=== PATIENT | male | born 1970 ===

== ENCOUNTER 2017-12-21 14:20 | Observation (INO) | payer BC ==
[2017-12-21] MEDS ORDERED: Morphine 4 MG/ML VIAL ONE ×2 (15:03→18:13)
[2017-12-21] MEDS ORDERED: Iohexol 240 (50 ml) PO STA (15:03)
--- NOTE | 2017-12-21 15:05 | ED PDOC ---
HPI: Abdomen Time Seen by Provider: 12/21/17 14:39 Chief Complaint (Nursing): Abdominal Pain Chief Complaint (Provider): abdominal pain History Per: Patient History/Exam Limitations: no limitations Onset/Duration Of Symptoms: Days (x1) Current Symptoms Are (Timing): Still Present Quality Of Discomfort: "Pain" Associated Symptoms: denies: Fever, Chills, Nausea, Vomiting, Diarrhea, Urinary Symptoms Last Bowel Movement: Yesterday Additional Complaint(s): Hernandez Godinez is a 47 year old male, with a past medical history of obstructive bowel, gastritis and peritonitis, who presents to the emergency department complaining of abdominal pain onset since last night. Patient's last bowel movement was last night and states it was normal. He did not take any medication for pain. He denies any fever, chills, nausea, vomit, diarrhea or urinary symptoms. No further medical complaints. PMD: Huan Mulligan Past Medical History Reviewed: Historical Data, Nursing Documentation, Vital Signs Vital Signs: Last Vital Signs Temp 98.3 F 12/21/17 14:24 Pulse 72 12/21/17 14:24 Resp 16 12/21/17 14:24 BP 121/77 12/21/17 14:24 Pulse Ox 100 12/21/17 15:16 - Medical History PMH: Gastritis, HTN, Hypercholesterolemia, Obstructive Bowel (SBO 2015) Denies: HIV, Chronic Kidney Disease Other PMH: peritonitis - Surgical History Surgical History: Appendectomy (10 yrs ago) - Family History Family History: States: No Known Family Hx - Social History Current smoker - smoking cessation education provided: No Alcohol: None Drugs: Denies - Home Medications Home Medications: Ambulatory Orders Medication Instructions Recorded Aspirin [Ecotrin] 81 mg PO DAILY 12/10/15 Atorvastatin [Lipitor] 40 mg PO DAILY 12/10/15 - Allergies Allergies/Adverse Reactions: Allergies Allergy/AdvReac Type Severity Reaction Status Date / Time No Known Allergies Allergy Verified 12/21/17 14:24 Review of Systems ROS Statement: Except As Marked, All Systems Reviewed And Found Negative Constitutional: Negative for: Fever, Chills Gastrointestinal: Positive for: Abdominal Pain. Negative for: Nausea, Vomiting , Diarrhea Genitourinary Male: Negative for: Dysuria Physical Exam - Reviewed Nursing Documentation Reviewed: Yes Vital Signs Reviewed: Yes - Physical Exam Appears: Positive for: Non-toxic, Uncomfortable Head Exam: Positive for: ATRAUMATIC, NORMOCEPHALIC Skin: Positive for: Normal Color, Warm, Dry Eye Exam: Positive for: Normal appearance Neck: Positive for: Painless ROM Cardiovascular/Chest: Positive for: Regular Rate, Rhythm. Negative for: Murmur Respiratory: Positive for: Normal Breath Sounds. Negative for: Respiratory Distress Gastrointestinal/Abdominal: Positive for: Tenderness (b/l upper and epigastric) , Distended Extremity: Positive for: Normal ROM (upper and lower extremities). Negative for : Deformity, Swelling Neurologic/Psych: Positive for: Alert, Oriented. Negative for: Motor/Sensory Deficits - Laboratory Results Result Diagrams: 12/21/17 15:13 12/21/17 15:13 - ECG O2 Sat by Pulse Oximetry: 100 (RA) Pulse Ox Interpretation: Normal Medical Decision Making Medical Decision Making: Initial Impression: abdominal pain Initial Plan: --Abd Pelvis PO & IV contrast [CT] --EKG --CMP --Lipase --Urine dipstick --CBC w/ differential --PTT --PT --Omnipaque 240 50 ml PO --Morphine 4 mg IV --Urinalysis --Reevaluation 16:50 -Discussed case with Dr. Arevalo after CT, called surgical supply assistant under Dr. Arevalo. Scribe Attestation: Documented by Torres Banks, acting as a scribe for Samara Ponce MD Provider Scribe Attestation: All medical record entries made by the Scribe were at my direction and personally dictated by me. I have reviewed the chart and agree that the record accurately reflects my personal performance of the history, physical exam, medical decision making, and the department course for this patient. I have also personally directed, reviewed, and agree with the discharge instructions and disposition. Disposition - Disposition Forms: [employer] (Arabic)
[2017-12-21] MEDS ORDERED: Iohexol 240 (50 ml) ONE (15:13)
[2017-12-21 15:25] LABS: INR 1.1 (0.9-1.2); PARTIAL THROMBOPLASTIN TIME 26.6 Seconds (25.6-37.1); PROTHROMBIN TIME 12.1 Seconds (9.8-13.1)
[2017-12-21 15:28] LABS: BASO # 0.1 K/uL (0.0-0.2); BASO % 0.5 % (0.0-2.0); EOS # 0.1 K/uL (0.0-0.7); EOS % 0.6 % (0.0-4.0); HEMOGLOBIN 15.8 g/dL (12.0-18.0); LYMPH # 3.4 K/uL (1.0-4.3); LYMPH % 29.6 % (20.0-40.0); MEAN CELL VOLUME 90.8 fl (80.0-94.0); MEAN CORPUSCULAR HGB CONC 34.2 g/dL (33.0-37.0); MEAN PLATELET VOLUME 7.7 fl (7.2-11.7); MONO # 0.8 K/uL (0.0-0.8); MONO % 6.8 % (0.0-10.0); NEUT # 7.2 K/uL (1.8-7.0); NEUT % 62.5 % (50.0-75.0); RBC 5.08 Mil/uL (4.40-5.90); RED CELL DISTRIBUTION WIDTH 13.2 % (11.5-14.5); WHITE BLOOD COUNT 11.5 K/uL (4.8-10.8)
[2017-12-21 15:43] LABS: ALB/GLOB RATIO 1.3 (1.0-2.1); ALBUMIN 4.7 g/dL (3.5-5.0); ALT/SGPT 54 U/L (21-72); AST/SGOT 36 U/L (17-59); BLOOD UREA NITROGEN 17 mg/dl (9-20); CALCIUM 9.6 mg/dL (8.4-10.2); GFR AFRICAN-AMERICAN > 60; GFR NON-AFRICAN AMERICAN > 60; LIPASE 77 U/L (23-300)
[2017-12-21 16:40] LABS: SQUAMOUS EPITHIAL < 1 /hpf (0-5); URINE BACTERIA RARE (<OCC); URINE BILIRUBIN NEGATIVE (NEGATIVE); URINE BLOOD NEGATIVE (NEGATIVE); URINE CLARITY CLEAR (Clear); URINE COLOR YELLOW (YELLOW); URINE GLUCOSE (UA) NEG (Normal); URINE LEUKOCYTE ESTERASE NEG Leu/uL (Negative); URINE PROTEIN NEGATIVE (NEGATIVE); URINE UROBILINOGEN 0.2-1.0 mg/dL (0.2-1.0)
[2017-12-21] MEDS ORDERED: Sodium Chloride 0.9% 100 ML ONE (16:57)
[2017-12-21] MEDS ORDERED: Iohexol 300 100 ML IJ ONE (16:57)
--- NOTE | 2017-12-21 17:57 | CT ---
PROCEDURE: CT Abdomen and Pelvis with contrast HISTORY: Upper abd pain COMPARISON: 08/31/2016 TECHNIQUE: Contrast dose: 95 mL Omnipaque 300 Radiation dose: Total exam DLP = 1009.34 mGy-cm. This CT exam was performed using one or more of the following dose reduction techniques: Automated exposure control, adjustment of the mA and/or kV according to patient size, and/or use of iterative reconstruction technique. FINDINGS: LOWER THORAX: Unremarkable. LIVER: Normal size, contour and attenuation. Irregularly-shaped low-attenuation lesion in the medial segment of the left hepatic lobe unchanged from prior examination. This measures approximately 1.5 x 3.0 cm. Nonspecific. No other mass. No biliary dilatation. Smooth contour. GALLBLADDER AND BILE DUCTS: Unremarkable. PANCREAS: Unremarkable. No gross lesion or ductal dilatation. SPLEEN: Normal size and contour. Stable 2.6 cm lesion with thick enhancing rim and central low attenuation. ADRENALS: Unremarkable. No mass. KIDNEYS AND URETERS: Unremarkable. No hydronephrosis. No solid mass. VASCULATURE: Unremarkable. No aortic aneurysm. BOWEL: Mechanical small-bowel obstruction. Definite point of transition is not identified. There is fecalization of content in the small bowel indicating likely mechanical obstruction. APPENDIX: Not identified. PERITONEUM: Unremarkable. No free fluid. No free air. LYMPH NODES: Unremarkable. No enlarged lymph nodes. BLADDER: Poorly distended. No gross abnormality. REPRODUCTIVE: Unremarkable prostate. BONES: No acute fracture. Posterior fixation L4-5. OTHER FINDINGS: None. IMPRESSION: Mechanical small-bowel obstruction. Definite point of transition not identified. No etiology is evident. Stable enhancing splenic lesion. Stable nonspecific low-attenuation hepatic lesion.
--- NOTE | 2017-12-21 18:07 | ED PDOC ---
- Laboratory Results Result Diagrams: 12/21/17 15:13 12/21/17 15:13 Interpretation Of Abn Labs: 11.5 wbc - ECG O2 Sat by Pulse Oximetry: 100 (RA) Pulse Ox Interpretation: Normal - Progress ED Course And Treament: 1500: Pt. with abd pain. Took over care from Dr. Ponce. Fu on imaging. Hx of sbo. 180: Stable. AAOx3. Spoke with Dr. Mulligan. Will admit. Pt. saw Dr. Sadler last time he had SBO. 1831: Spoke with manager surgical. They will see pt. and speak with Dr. Sadler. Disposition - Clinical Impression Clinical Impression: Intestinal obstruction - POA Present On Arrival: None - Disposition Disposition: Admitted as In-Patient Disposition Time: 18:10 Condition: FAIR
[2017-12-21] MEDS ORDERED: Morphine 4 MG/ML VIAL IV ONE (18:12)
--- NOTE | 2017-12-21 19:38 | CP.PCM.CON ---
<Bautista Knox - Last Filed: 12/21/17 19:38> History of Present Illness - History of Present Illness History of Present Illness: Surgery Mr. Godinez is a 46M with PSH of open appendectomy for perforated appendicitis over 10 years ago. He presents with abdominal pain started yesterday. Pt reports he ate japanese food last night and started to have pain around the epigastric area. Pain got worse and became more diffuse. PT states he felt sharp cramping in his abdomen and began to feel distended. He denies any nausea or vomiting at any time. His last BM was this morning. Non bloody non diarrhea. Currently, pt reports he feels much better with morphine. No further bowel movements or flatus however. Denies dysuria, hematochezia, hematemesis, hematuria, recent travel, sick contact, dizziness, SOB, CP. Pt had similar symptoms in the past. Seen by surgical team. Treated conservatively. Pt was seen by GI at that time and had colonoscopy and endoscopy since then. Per pt they were normal. PMH: acid reflux PSH: Open appendectomy, spinal sx, colonoscopy, endoscopy Review of Systems - Review of Systems Review of Systems: See HPI Past Patient History - Past Medical History & Family History Past Medical History?: Yes - Past Social History Alcohol: None Drugs: Denies - CARDIAC Hx Hypercholesterolemia: Yes Hx Hypertension: Yes - PULMONARY Hx Respiratory Disorders: No - NEUROLOGICAL Hx Neurological Disorder: No - HEENT Hx HEENT Problems: No - RENAL Hx Chronic Kidney Disease: No - ENDOCRINE/METABOLIC Hx Diabetes Mellitus Type 2: Yes - HEMATOLOGICAL/ONCOLOGICAL Hx Human Immunodeficiency Virus (HIV): No - INTEGUMENTARY Hx Dermatological Problems: No - MUSCULOSKELETAL/RHEUMATOLOGICAL Hx Musculoskeletal Disorders: No Hx Falls: No - GASTROINTESTINAL Hx Gastritis: Yes - GENITOURINARY/GYNECOLOGICAL Hx Genitourinary Disorders: No - PSYCHIATRIC Hx Psychophysiologic Disorder: No Hx Substance Use: No - SURGICAL HISTORY Hx Appendectomy: Yes (10 yrs ago) - ANESTHESIA Hx Anesthesia: Yes Hx Anesthesia Reactions: No Meds Allergies/Adverse Reactions: Allergies Allergy/AdvReac Type Severity Reaction Status Date / Time No Known Allergies Allergy Verified 12/21/17 14:24 - Medications Medications: Current Medications Acetaminophen (Tylenol 325mg Tab) 650 mg PO Q4 PRN PRN Reason: Fever >100.4 F Hydromorphone HCl (Dilaudid) 0.5 mg IVP Q4 PRN PRN Reason: Pain, severe (8-10) Sodium Chloride (Sodium Chloride 0.9%) 1,000 mls @ 150 mls/hr IV .Q6H40M [facility] Stop: 12/22/17 19:34 Ondansetron HCl (Zofran Inj) 4 mg IVP Q4 PRN PRN Reason: Nausea/Vomiting Physical Exam - Constitutional Appears: No Acute Distress - Head Exam Head Exam: ATRAUMATIC, NORMAL INSPECTION, NORMOCEPHALIC - Eye Exam Eye Exam: EOMI, Normal appearance, PERRL Pupil Exam: NORMAL ACCOMODATION, PERRL - ENT Exam ENT Exam: Mucous Membranes Moist, Normal Exam - Neck Exam Neck exam: Positive for: Normal Inspection - Respiratory Exam Respiratory Exam: Clear to Auscultation Bilateral, NORMAL BREATHING PATTERN - Cardiovascular Exam Cardiovascular Exam: REGULAR RHYTHM - GI/Abdominal Exam GI & Abdominal Exam: Distended, Normal Bowel Sounds, Soft, Tenderness. absent: Firm, Guarding, Hernia, Hypoactive Bowel Sounds, Mass, Organomegaly, Pulsatile Mass, Rebound, Rigid Additional comments: DIffusely tender to palpation. Well healed abd scar. - Rectal Exam Rectal Exam: NORMAL INSPECTION - Exam Exam: NORMAL INSPECTION - Back Exam Back exam: NORMAL INSPECTION - Neurological Exam Neurological exam: Alert, CN II-XII Intact, Normal Gait, Oriented x3, Reflexes Normal - Psychiatric Exam Psychiatric exam: Normal Affect, Normal Mood - Skin Skin Exam: Dry, Intact, Normal Color, Warm Results - Vital Signs Recent Vital Signs: Last Vital Signs Temp 98.3 F 12/21/17 19:01 Pulse 84 12/21/17 19:01 Resp 18 12/21/17 19:01 BP 119/87 12/21/17 19:01 Pulse Ox 97 12/21/17 19:01 - Labs Result Diagrams: 12/21/17 15:13 12/21/17 15:13 Labs: Laboratory Results - last 24 hr 12/21/17 12/21/17 12/21/17 15:13 15:13 15:13 WBC 11.5 H D RBC 5.08 Hgb 15.8 Hct 46.1 MCV 90.8 MCH 31.0 MCHC 34.2 RDW 13.2 Plt Count 283 MPV 7.7 Neut % (Auto) 62.5 Lymph % (Auto) 29.6 [place] % (Auto) 6.8 Eos % (Auto) 0.6 Baso % (Auto) 0.5 Neut # (Auto) 7.2 H Lymph # (Auto) 3.4 [place] # (Auto) 0.8 Eos # (Auto) 0.1 Baso # (Auto) 0.1 PT 12.1 INR 1.1 APTT 26.6 Sodium 143 Potassium 3.8 Chloride 101 Carbon Dioxide 25 Anion Gap 21 H BUN 17 Creatinine 0.7 L Est GFR ( Amer) > 60 Est GFR (Non-Af Amer) > 60 Random Glucose 109 Calcium 9.6 Total Bilirubin 0.8 AST 36 ALT 54 Alkaline Phosphatase 93 Total Protein 8.2 Albumin 4.7 Globulin 3.6 Albumin/Globulin Ratio 1.3 Lipase 77 Urine Color Urine Clarity Urine pH Ur Specific [place] Urine Protein Urine Glucose (UA) Urine Ketones Urine Blood Urine Nitrate Urine Bilirubin Urine Urobilinogen Ur Leukocyte Esterase Urine RBC (Auto) Urine Microscopic WBC Ur Squamous Epith Cells Urine Bacteria 12/21/17 16:00 WBC RBC Hgb Hct MCV MCH MCHC RDW Plt Count MPV Neut % (Auto) Lymph % (Auto) [place] % (Auto) Eos % (Auto) Baso % (Auto) Neut # (Auto) Lymph # (Auto) [place] # (Auto) Eos # (Auto) Baso # (Auto) PT INR APTT Sodium Potassium Chloride Carbon Dioxide Anion Gap BUN Creatinine Est GFR ( Amer) Est GFR (Non-Af Amer) Random Glucose Calcium Total Bilirubin AST ALT Alkaline Phosphatase Total Protein Albumin Globulin Albumin/Globulin Ratio Lipase Urine Color Yellow Urine Clarity Clear Urine pH 6.0 Ur Specific [place] 1.025 Urine Protein Negative Urine Glucose (UA) Neg Urine Ketones Negative Urine Blood Negative Urine Nitrate Negative Urine Bilirubin Negative Urine Urobilinogen 0.2-1.0 Ur Leukocyte Esterase Neg Urine RBC (Auto) 2 Urine Microscopic WBC < 1 Ur Squamous Epith Cells < 1 Urine Bacteria Rare Assessment & Plan - Assessment and Plan (Free Text) Assessment: 47 M ho open appendectomy came w SBO CT: SBO w/o transition pt -NPO -IVF -Nausea/pain control -AMbulation -MOnitor VS -Serial abd exam -MOnitor BM -NGT if pt starts to feel nauseous. WIll DW Dr. Arevalo <Chris Arevalo - Last Filed: 12/22/17 09:06> History of Present Illness - History of Present Illness History of Present Illness: Patient was seen and examined at the bedside. Agree with resident's note above. States that feels much better today and passed some flatus this morning. Meds - Medications Medications: Current Medications Acetaminophen (Tylenol 325mg Tab) 650 mg PO Q4 PRN PRN Reason: Fever >100.4 F Famotidine (Pepcid) 20 mg IVP DAILY [facility] Dextrose/Lactated Ringer's (Dextrose 5%/Lactated Ringer's) 1,000 mls @ 125 mls/ hr IV .Q8H [facility] Stop: 12/22/17 21:21 Last Admin: 12/22/17 06:00 Dose: 125 mls/hr Morphine Sulfate (Morphine) 4 mg IVP Q6 PRN PRN Reason: Pain, severe (8-10) Last Admin: 12/21/17 21:55 Dose: 4 mg Ondansetron HCl (Zofran Inj) 4 mg IVP Q4 PRN PRN Reason: Nausea/Vomiting Pantoprazole Sodium (Protonix Inj) 40 mg IVP DAILY [facility] Last Admin: 12/22/17 08:31 Dose: 40 mg Physical Exam - GI/Abdominal Exam Additional comments: soft, NT, ND, BS+, no rebound, no guarding, well healed right paramedian incision Results - Vital Signs Recent Vital Signs: Last Vital Signs Temp 97.7 F 12/22/17 08:11 Pulse 69 12/22/17 08:11 Resp 20 12/22/17 08:11 BP 116/73 12/22/17 08:11 Pulse Ox 98 12/22/17 08:11 - Labs Result Diagrams: 12/22/17 06:00 12/22/17 06:00 Labs: Laboratory Results - last 24 hr 12/21/17 12/21/17 12/21/17 15:13 15:13 15:13 WBC 11.5 H D RBC 5.08 Hgb 15.8 Hct 46.1 MCV 90.8 MCH 31.0 MCHC 34.2 RDW 13.2 Plt Count 283 MPV 7.7 Neut % (Auto) 62.5 Lymph % (Auto) 29.6 [place] % (Auto) 6.8 Eos % (Auto) 0.6 Baso % (Auto) 0.5 Neut # (Auto) 7.2 H Lymph # (Auto) 3.4 [place] # (Auto) 0.8 Eos # (Auto) 0.1 Baso # (Auto) 0.1 PT 12.1 INR 1.1 APTT 26.6 Sodium 143 Potassium 3.8 Chloride 101 Carbon Dioxide 25 Anion Gap 21 H BUN 17 Creatinine 0.7 L Est GFR ( Amer) > 60 Est GFR (Non-Af Amer) > 60 POC Glucose (mg/dL) Random Glucose 109 Calcium 9.6 Total Bilirubin 0.8 AST 36 ALT 54 Alkaline Phosphatase 93 Total Protein 8.2 Albumin 4.7 Globulin 3.6 Albumin/Globulin Ratio 1.3 Lipase 77 Urine Color Urine Clarity Urine pH Ur Specific [place] Urine Protein Urine Glucose (UA) Urine Ketones Urine Blood Urine Nitrate Urine Bilirubin Urine Urobilinogen Ur Leukocyte Esterase Urine RBC (Auto) Urine Microscopic WBC Ur Squamous Epith Cells Urine Bacteria 12/21/17 12/21/17 12/22/17 16:00 21:25 05:48 WBC RBC Hgb Hct MCV MCH MCHC RDW Plt Count MPV Neut % (Auto) Lymph % (Auto) [place] % (Auto) Eos % (Auto) Baso % (Auto) Neut # (Auto) Lymph # (Auto) [place] # (Auto) Eos # (Auto) Baso # (Auto) PT INR APTT Sodium Potassium Chloride Carbon Dioxide Anion Gap BUN Creatinine Est GFR ( Amer) Est GFR (Non-Af Amer) POC Glucose (mg/dL) 113 H 110 Random Glucose Calcium Total Bilirubin AST ALT Alkaline Phosphatase Total Protein Albumin Globulin Albumin/Globulin Ratio Lipase Urine Color Yellow Urine Clarity Clear Urine pH 6.0 Ur Specific [place] 1.025 Urine Protein Negative Urine Glucose (UA) Neg Urine Ketones Negative Urine Blood Negative Urine Nitrate Negative Urine Bilirubin Negative Urine Urobilinogen 0.2-1.0 Ur Leukocyte Esterase Neg Urine RBC (Auto) 2 Urine Microscopic WBC < 1 Ur Squamous Epith Cells < 1 Urine Bacteria Rare 12/22/17 12/22/17 06:00 06:00 WBC 11.9 H RBC 4.61 Hgb 14.5 Hct 42.4 MCV 91.9 MCH 31.4 H MCHC 34.2 RDW 13.3 Plt Count 260 MPV 7.6 Neut % (Auto) 77.6 H Lymph % (Auto) 13.3 L [place] % (Auto) 8.3 Eos % (Auto) 0.6 Baso % (Auto) 0.2 Neut # (Auto) 9.3 H Lymph # (Auto) 1.6 [place] # (Auto) 1.0 H Eos # (Auto) 0.1 Baso # (Auto) 0.0 PT INR APTT Sodium 141 Potassium 3.6 Chloride 102 Carbon Dioxide 23 Anion Gap 20 BUN 14 Creatinine 0.5 L Est GFR ( Amer) > 60 Est GFR (Non-Af Amer) > 60 POC Glucose (mg/dL) Random Glucose 127 H Calcium 8.6 Total Bilirubin 0.8 AST 31 ALT 45 Alkaline Phosphatase 71 Total Protein 7.0 Albumin 3.9 Globulin 3.1 Albumin/Globulin Ratio 1.3 Lipase Urine Color Urine Clarity Urine pH Ur Specific [place] Urine Protein Urine Glucose (UA) Urine Ketones Urine Blood Urine Nitrate Urine Bilirubin Urine Urobilinogen Ur Leukocyte Esterase Urine RBC (Auto) Urine Microscopic WBC Ur Squamous Epith Cells Urine Bacteria - Imaging and Cardiology CT scan - abdomen Status: Image reviewed by me, Report reviewed by me Assessment & Plan - Assessment and Plan (Free Text) Plan: - Keep NPO - IV fluids - pain control - Abdominal X-ray today, if X-ray shows progression of the contrast to the colon will start clear liquid diet - Repeat labs in am - Will follow
[2017-12-21] MEDS ORDERED: Sodium Chloride 0.9% 1,000 ML IV SCH (19:45)
[2017-12-21] MEDS ORDERED: Morphine 4 MG/ML VIAL IVP PRN (21:20)
[2017-12-21] MEDS: Dextrose 5%/Lactated Ringer's 1,000 ML IV SCH (21:56)
[2017-12-22] MEDS: Dextrose 5%/Lactated Ringer's 1,000 ML IV SCH ×2 (06:00→12:29)
[2017-12-22 06:33] LABS: BASO % 0.2 % (0.0-2.0); EOS # 0.1 K/uL (0.0-0.7); EOS % 0.6 % (0.0-4.0); HEMOGLOBIN 14.5 g/dL (12.0-18.0); LYMPH # 1.6 K/uL (1.0-4.3); LYMPH % 13.3 % (20.0-40.0); MEAN CELL VOLUME 91.9 fl (80.0-94.0); MEAN CORPUSCULAR HEMOGLOBIN 31.4 pg (27.0-31.0); MEAN CORPUSCULAR HGB CONC 34.2 g/dL (33.0-37.0); MEAN PLATELET VOLUME 7.6 fl (7.2-11.7); MONO % 8.3 % (0.0-10.0); NEUT # 9.3 K/uL (1.8-7.0); NEUT % 77.6 % (50.0-75.0); RBC 4.61 Mil/uL (4.40-5.90); RED CELL DISTRIBUTION WIDTH 13.3 % (11.5-14.5); WHITE BLOOD COUNT 11.9 K/uL (4.8-10.8)
[2017-12-22 07:15] LABS: ALB/GLOB RATIO 1.3 (1.0-2.1); ALBUMIN 3.9 g/dL (3.5-5.0); ALT/SGPT 45 U/L (21-72); AST/SGOT 31 U/L (17-59); BLOOD UREA NITROGEN 14 mg/dl (9-20); CALCIUM 8.6 mg/dL (8.4-10.2); GFR AFRICAN-AMERICAN > 60; GFR NON-AFRICAN AMERICAN > 60
--- NOTE | 2017-12-22 09:16 | CP.PCM.PN ---
Subjective - Date & Time of Evaluation Date of Evaluation: 12/22/17 Time of Evaluation: 08:45 - Subjective Subjective: Patient was seen and examined at the bedside. States that feels much better, passing flatus this morning. Objective - Vital Signs/Intake and Output Vital Signs (last 24 hours): Temp Pulse Resp BP Pulse Ox 97.7 F 69 20 116/73 98 12/22/17 08:11 12/22/17 08:11 12/22/17 08:11 12/22/17 08:11 12/22/17 08:11 - Medications Medications: Current Medications Acetaminophen (Tylenol 325mg Tab) 650 mg PO Q4 PRN PRN Reason: Fever >100.4 F Famotidine (Pepcid) 20 mg IVP DAILY [facility] Dextrose/Lactated Ringer's (Dextrose 5%/Lactated Ringer's) 1,000 mls @ 125 mls/ hr IV .Q8H [facility] Stop: 12/22/17 21:21 Last Admin: 12/22/17 06:00 Dose: 125 mls/hr Morphine Sulfate (Morphine) 4 mg IVP Q6 PRN PRN Reason: Pain, severe (8-10) Last Admin: 12/21/17 21:55 Dose: 4 mg Ondansetron HCl (Zofran Inj) 4 mg IVP Q4 PRN PRN Reason: Nausea/Vomiting Pantoprazole Sodium (Protonix Inj) 40 mg IVP DAILY [facility] Last Admin: 12/22/17 08:31 Dose: 40 mg - Labs Labs: 12/22/17 06:00 12/22/17 06:00 PT 12.1 Seconds (9.8-13.1) 12/21/17 15:13 INR 1.1 (0.9-1.2) 12/21/17 15:13 APTT 26.6 Seconds (25.6-37.1) 12/21/17 15:13 - Constitutional Appears: Well, Non-toxic, No Acute Distress - Head Exam Head Exam: ATRAUMATIC, NORMAL INSPECTION, NORMOCEPHALIC - Eye Exam Eye Exam: EOMI, Normal appearance, PERRL Pupil Exam: NORMAL ACCOMODATION, PERRL - ENT Exam ENT Exam: Mucous Membranes Moist, Normal Exam - Neck Exam Neck Exam: Full ROM, Normal Inspection - Respiratory Exam Respiratory Exam: Clear to Ausculation Bilateral, NORMAL BREATHING PATTERN - Cardiovascular Exam Cardiovascular Exam: REGULAR RHYTHM, +S1, +S2 - GI/Abdominal Exam GI & Abdominal Exam: Soft, Normal Bowel Sounds Additional comments: NT, ND, no rebound, no guarding, well healed right paramedian incision - Rectal Exam Rectal Exam: Deferred - Extremities Exam Extremities Exam: Full ROM, Normal Inspection - Neurological Exam Neurological Exam: Alert, Awake, Oriented x3 - Psychiatric Exam Psychiatric exam: Normal Affect, Normal Mood - Skin Skin Exam: Dry, Intact, Normal Color, Warm Assessment and Plan - Assessment and Plan (Free Text) Assessment: 47 y.o. male with small bowel obstruction Plan: - keep NPO - IV fluids - pain control - Abdominal X-ray today - If X-ray shows progression of the oral contrast to the colon will start clear liquid diet - repeat labs in am - Will follow
--- NOTE | 2017-12-22 09:51 | CP.PCM.HP ---
History of Present Illness - History of Present Illness History of Present Illness: 46 yo, m, PMhx/o HTN, SBO 2 years ago that resolved w/o surgery presents c/o diffuse abd pain started 2 days ago after he ate a [employer] food, later on epigastric area, intermiteent, getting progressive worse, associated with abd swelling. Patient was able to have 1 BM yesterday while on abd pain. He denies fever, n,v,d, dysuria, gross hematyria, chest pain, SOB, sick contact. Reports hx/o appendectomy 15 years ago. Patient seen and examined bedside with Dr Mulligan. Patient seen by surgery and is going for Abd XR. Reports No BM today and abd pain subsided. Present on Admission - Present on Admission Any Indicators Present on Admission: No History of DVT/PE: No History of Uncontrolled Diabetes: No Urinary Catheter: No Decubitus Ulcer Present: No Review of Systems - Review of Systems All systems: reviewed and no additional remarkable complaints except - Cardiovascular Cardiovascular: As Per HPI - Respiratory Respiratory: As Per HPI - Gastrointestinal Gastrointestinal: Abdominal Pain Past Patient History - Past Medical History & Family History Past Medical History?: Yes - Past Social History Smoking Status: Never Smoked - CARDIAC Hx Cardiac Disorders: Yes Hx Hypercholesterolemia: Yes Hx Hypertension: Yes - PULMONARY Hx Respiratory Disorders: No - NEUROLOGICAL Hx Neurological Disorder: No - HEENT Hx HEENT Problems: No - RENAL Hx Chronic Kidney Disease: No - ENDOCRINE/METABOLIC Hx Endocrine Disorders: Yes Hx Diabetes Mellitus Type 2: Yes - HEMATOLOGICAL/ONCOLOGICAL Hx Blood Disorders: No Hx Human Immunodeficiency Virus (HIV): No - INTEGUMENTARY Hx Dermatological Problems: No - MUSCULOSKELETAL/RHEUMATOLOGICAL Hx Musculoskeletal Disorders: No Hx Falls: No - GASTROINTESTINAL Hx Gastrointestinal Disorders: Yes Hx Gastritis: Yes - GENITOURINARY/GYNECOLOGICAL Hx Genitourinary Disorders: No - PSYCHIATRIC Hx Psychophysiologic Disorder: No Hx Substance Use: No - SURGICAL HISTORY Hx Surgeries: Yes Hx Appendectomy: Yes (10 yrs ago) - ANESTHESIA Hx Anesthesia: Yes Hx Anesthesia Reactions: No Meds Allergies/Adverse Reactions: Allergies Allergy/AdvReac Type Severity Reaction Status Date / Time No Known Allergies Allergy Verified 12/21/17 14:24 Physical Exam - Constitutional Appears: Non-toxic, No Acute Distress - Eye Exam Eye Exam: Normal appearance - ENT Exam ENT Exam: Mucous Membranes Moist - Neck Exam Neck exam: Positive for: Normal Inspection - Respiratory Exam Respiratory Exam: Clear to Auscultation Bilateral. absent: Rhonchi, Wheezes - Cardiovascular Exam Cardiovascular Exam: REGULAR RHYTHM, +S1, +S2 - GI/Abdominal Exam GI & Abdominal Exam: Normal Bowel Sounds, Soft. absent: Guarding, Rebound, Tenderness - Extremities Exam Extremities exam: Positive for: normal inspection. Negative for: pedal edema - Neurological Exam Neurological exam: Alert, Oriented x3 - Psychiatric Exam Psychiatric exam: Normal Affect, Normal Mood - Skin Skin Exam: Intact Results - Vital Signs Recent Vital Signs: Last Vital Signs Temp 97.7 F 12/22/17 08:11 Pulse 69 12/22/17 08:11 Resp 20 12/22/17 08:11 BP 116/73 12/22/17 08:11 Pulse Ox 98 12/22/17 08:11 - Labs Result Diagrams: 12/22/17 06:00 12/22/17 06:00 Labs: Laboratory Results - last 24 hr 12/21/17 12/21/17 12/21/17 15:13 15:13 15:13 WBC 11.5 H D RBC 5.08 Hgb 15.8 Hct 46.1 MCV 90.8 MCH 31.0 MCHC 34.2 RDW 13.2 Plt Count 283 MPV 7.7 Neut % (Auto) 62.5 Lymph % (Auto) 29.6 [place] % (Auto) 6.8 Eos % (Auto) 0.6 Baso % (Auto) 0.5 Neut # (Auto) 7.2 H Lymph # (Auto) 3.4 [place] # (Auto) 0.8 Eos # (Auto) 0.1 Baso # (Auto) 0.1 PT 12.1 INR 1.1 APTT 26.6 Sodium 143 Potassium 3.8 Chloride 101 Carbon Dioxide 25 Anion Gap 21 H BUN 17 Creatinine 0.7 L Est GFR ( Amer) > 60 Est GFR (Non-Af Amer) > 60 POC Glucose (mg/dL) Random Glucose 109 Calcium 9.6 Total Bilirubin 0.8 AST 36 ALT 54 Alkaline Phosphatase 93 Total Protein 8.2 Albumin 4.7 Globulin 3.6 Albumin/Globulin Ratio 1.3 Lipase 77 Urine Color Urine Clarity Urine pH Ur Specific [place] Urine Protein Urine Glucose (UA) Urine Ketones Urine Blood Urine Nitrate Urine Bilirubin Urine Urobilinogen Ur Leukocyte Esterase Urine RBC (Auto) Urine Microscopic WBC Ur Squamous Epith Cells Urine Bacteria 05/08/18 05/08/18 05/09/18 16:00 21:25 05:48 WBC RBC Hgb Hct MCV MCH MCHC RDW Plt Count MPV Neut % (Auto) Lymph % (Auto) [place] % (Auto) Eos % (Auto) Baso % (Auto) Neut # (Auto) Lymph # (Auto) [place] # (Auto) Eos # (Auto) Baso # (Auto) PT INR APTT Sodium Potassium Chloride Carbon Dioxide Anion Gap BUN Creatinine Est GFR ( Amer) Est GFR (Non-Af Amer) POC Glucose (mg/dL) 113 H 110 Random Glucose Calcium Total Bilirubin AST ALT Alkaline Phosphatase Total Protein Albumin Globulin Albumin/Globulin Ratio Lipase Urine Color Yellow Urine Clarity Clear Urine pH 6.0 Ur Specific [place] 1.025 Urine Protein Negative Urine Glucose (UA) Neg Urine Ketones Negative Urine Blood Negative Urine Nitrate Negative Urine Bilirubin Negative Urine Urobilinogen 0.2-1.0 Ur Leukocyte Esterase Neg Urine RBC (Auto) 2 Urine Microscopic WBC < 1 Ur Squamous Epith Cells < 1 Urine Bacteria Rare 12/22/17 12/22/17 06:00 06:00 WBC 11.9 H RBC 4.61 Hgb 14.5 Hct 42.4 MCV 91.9 MCH 31.4 H MCHC 34.2 RDW 13.3 Plt Count 260 MPV 7.6 Neut % (Auto) 77.6 H Lymph % (Auto) 13.[address] [place] % (Auto) 8.3 Eos % (Auto) 0.6 Baso % (Auto) 0.2 Neut # (Auto) 9.3 H Lymph # (Auto) 1.6 [place] # (Auto) 1.0 H Eos # (Auto) 0.1 Baso # (Auto) 0.0 PT INR APTT Sodium 141 Potassium 3.6 Chloride 102 Carbon Dioxide 23 Anion Gap 20 BUN 14 Creatinine 0.5 L Est GFR ( Amer) > 60 Est GFR (Non-Af Amer) > 60 POC Glucose (mg/dL) Random Glucose 127 H Calcium 8.6 Total Bilirubin 0.8 AST 31 ALT 45 Alkaline Phosphatase 71 Total Protein 7.0 Albumin 3.9 Globulin 3.1 Albumin/Globulin Ratio 1.3 Lipase Urine Color Urine Clarity Urine pH Ur Specific [place] Urine Protein Urine Glucose (UA) Urine Ketones Urine Blood Urine Nitrate Urine Bilirubin Urine Urobilinogen Ur Leukocyte Esterase Urine RBC (Auto) Urine Microscopic WBC Ur Squamous Epith Cells Urine Bacteria Assessment & Plan - Assessment and Plan (Free Text) Plan: 46 yo, m, PMhx/o HTN, SBO 2 years ago that resolved w/o surgery admitted for a new episode of SBO 1) SBO Secondary to adhesion for appendectomy 15 years ago -Ct Abd: mechanical bowel obstruction -General surgery consult appreciated: request XR abd, if progression of contrast liquid diet and labs AB -f/u CBC 2) HTN Controlled, no on BP medications 3) DVT Prophylaxis SCD
--- NOTE | 2017-12-22 11:28 | RAD ---
HISTORY: SBO. upright COMPARISON: December 21, 2017. CT abdomen and pelvis. FINDINGS: BOWEL: Dilatation of small bowel in the left ben abdomen and overlying the spine similar finding identified recent. However, contrast is identified in nondistended colon. BONES: Normal. OTHER FINDINGS: None. IMPRESSION: Persistent dilatation small bowel. Contrast identified in nondistended colon. No free air identified.
[2017-12-23 07:15] LABS: BASO # 0.1 K/uL (0.0-0.2); BASO % 1.1 % (0.0-2.0); EOS # 0.2 K/uL (0.0-0.7); EOS % 3.4 % (0.0-4.0); HEMOGLOBIN 14.5 g/dL (12.0-18.0); LYMPH # 1.9 K/uL (1.0-4.3); LYMPH % 31.3 % (20.0-40.0); MEAN CORPUSCULAR HEMOGLOBIN 30.8 pg (27.0-31.0); MEAN CORPUSCULAR HGB CONC 33.9 g/dL (33.0-37.0); MEAN PLATELET VOLUME 7.6 fl (7.2-11.7); MONO # 0.5 K/uL (0.0-0.8); MONO % 8.4 % (0.0-10.0); NEUT # 3.4 K/uL (1.8-7.0); NEUT % 55.8 % (50.0-75.0); NRBC % 0.1 % (0.0-0.0); RBC 4.7 Mil/uL (4.40-5.90); RED CELL DISTRIBUTION WIDTH 13.5 % (11.5-14.5)
[2017-12-23 07:36] LABS: BLOOD UREA NITROGEN 10 mg/dl (9-20); CALCIUM 8.7 mg/dL (8.4-10.2); GFR AFRICAN-AMERICAN > 60; GFR NON-AFRICAN AMERICAN > 60
--- NOTE | 2017-12-23 07:50 | CP.PCM.PN ---
Subjective - Date & Time of Evaluation Date of Evaluation: 12/23/17 Time of Evaluation: 06:45 - Subjective Subjective: Patient seen and examined. No acute events over night. Tolerated liquid diet. Abdominal pain has resolved. Passing flatus. Denies nausea/vomiting, fever/ chills. Objective - Vital Signs/Intake and Output Vital Signs (last 24 hours): Temp Pulse Resp BP Pulse Ox 98 F 63 19 118/77 96 12/23/17 00:41 12/23/17 00:41 12/23/17 00:41 12/23/17 00:41 12/23/17 00:41 Intake and Output: 12/23/17 12/23/17 06:59 18:59 Intake Total 1500 Balance 1500 - Medications Medications: Current Medications Acetaminophen (Tylenol 325mg Tab) 650 mg PO Q4 PRN PRN Reason: Fever >100.4 F Morphine Sulfate (Morphine) 4 mg IVP Q6 PRN PRN Reason: Pain, severe (8-10) Last Admin: 12/21/17 21:55 Dose: 4 mg Ondansetron HCl (Zofran Inj) 4 mg IVP Q4 PRN PRN Reason: Nausea/Vomiting Pantoprazole Sodium (Protonix Inj) 40 mg IVP DAILY CHENG Last Admin: 12/22/17 08:31 Dose: 40 mg - Labs Labs: 12/23/17 06:45 12/23/17 06:45 PT 12.1 Seconds (9.8-13.1) 12/21/17 15:13 INR 1.1 (0.9-1.2) 12/21/17 15:13 APTT 26.6 Seconds (25.6-37.1) 12/21/17 15:13 - Constitutional Appears: No Acute Distress - Head Exam Head Exam: NORMOCEPHALIC - Eye Exam Eye Exam: Normal appearance - ENT Exam ENT Exam: Mucous Membranes Moist - Respiratory Exam Respiratory Exam: NORMAL BREATHING PATTERN - Cardiovascular Exam Cardiovascular Exam: +S1, +S2 - GI/Abdominal Exam GI & Abdominal Exam: Soft. absent: Distended, Rigid - Neurological Exam Neurological Exam: Alert, Awake, Oriented x3 - Psychiatric Exam Psychiatric exam: Normal Mood - Skin Skin Exam: Dry, Intact, Warm Assessment and Plan - Assessment and Plan (Free Text) Assessment: 47M with SBO, resolved Plan: Advance to regular diet Encourage ambulation Further recs per Dr. Mickey Da Silva PGY2
[2017-12-23 08:22] VITALS: BP 121/84; PULSE 61; RESP 18; TEMP 97.6; O2SAT 97
--- NOTE | 2017-12-23 08:28 | CP.PCM.PN ---
Objective - Vital Signs/Intake and Output Vital Signs (last 24 hours): Temp Pulse Resp BP Pulse Ox 97.6 F 61 18 121/84 97 12/23/17 08:21 12/23/17 08:21 12/23/17 08:21 12/23/17 08:21 12/23/17 08:21 Intake and Output: 12/23/17 12/23/17 06:59 18:59 Intake Total 1500 Balance 1500 - Medications Medications: Current Medications Acetaminophen (Tylenol 325mg Tab) 650 mg PO Q4 PRN PRN Reason: Fever >100.4 F Morphine Sulfate (Morphine) 4 mg IVP Q6 PRN PRN Reason: Pain, severe (8-10) Last Admin: 12/21/17 21:55 Dose: 4 mg Ondansetron HCl (Zofran Inj) 4 mg IVP Q4 PRN PRN Reason: Nausea/Vomiting Pantoprazole Sodium (Protonix Inj) 40 mg IVP DAILY CHENG Last Admin: 12/22/17 08:31 Dose: 40 mg - Labs Labs: 12/23/17 06:45 12/23/17 06:45 PT 12.1 Seconds (9.8-13.1) 12/21/17 15:13 INR 1.1 (0.9-1.2) 12/21/17 15:13 APTT 26.6 Seconds (25.6-37.1) 12/21/17 15:13
--- NOTE | 2017-12-23 11:43 | CP.PCM.DIS ---
Provider - Provider Date of Admission: 12/21/17 18:08 Attending physician: Huan Agosto MD Consults: Surgery Dr Arevalo Time Spent in preparation of Discharge (in minutes): 20 Hospital Course - Lab Results Lab Results: Most Recent Lab Values WBC 6.0 K/uL (4.8-10.8) 12/23/17 06:45 RBC 4.70 Mil/uL (4.40-5.90) 12/23/17 06:45 Hgb 14.5 g/dL (12.0-18.0) 12/23/17 06:45 Hct 42.8 % (35.0-51.0) 12/23/17 06:45 MCV 91.0 fl (80.0-94.0) 12/23/17 06:45 MCH 30.8 pg (27.0-31.0) 12/23/17 06:45 MCHC 33.9 g/dL (33.0-37.0) 12/23/17 06:45 RDW 13.5 % (11.5-14.5) 12/23/17 06:45 Plt Count 246 K/uL (130-400) 12/23/17 06:45 MPV 7.6 fl (7.2-11.7) 12/23/17 06:45 Neut % (Auto) 55.8 % (50.0-75.0) 12/23/17 06:45 Lymph % (Auto) 31.3 % (20.0-40.0) 12/23/17 06:45 [place] % (Auto) 8.4 % (0.0-10.0) 12/23/17 06:45 Eos % (Auto) 3.4 % (0.0-4.0) 12/23/17 06:45 Baso % (Auto) 1.1 % (0.0-2.0) 12/23/17 06:45 Neut # (Auto) 3.4 K/uL (1.8-7.0) 12/23/17 06:45 Lymph # (Auto) 1.9 K/uL (1.0-4.3) 12/23/17 06:45 [place] # (Auto) 0.5 K/uL (0.0-0.8) 12/23/17 06:45 Eos # (Auto) 0.2 K/uL (0.0-0.7) 12/23/17 06:45 Baso # (Auto) 0.1 K/uL (0.0-0.2) 12/23/17 06:45 PT 12.1 Seconds (9.8-13.1) 12/21/17 15:13 INR 1.1 (0.9-1.2) 12/21/17 15:13 APTT 26.6 Seconds (25.6-37.1) 12/21/17 15:13 Sodium 144 mmol/l (132-148) 12/23/17 06:45 Potassium 3.7 MMOL/L (3.6-5.0) 12/23/17 06:45 Chloride 104 mmol/L (98-107) 12/23/17 06:45 Carbon Dioxide 27 mmol/L (22-30) 12/23/17 06:45 Anion Gap 17 (10-20) 12/23/17 06:45 BUN 10 mg/dl (9-20) 12/23/17 06:45 Creatinine 0.6 mg/dl (0.8-1.5) L 12/23/17 06:45 Est GFR ( Amer) > 60 12/23/17 06:45 Est GFR (Non-Af Amer) > 60 12/23/17 06:45 POC Glucose (mg/dL) 91 mg/dL (65-110) 12/23/17 11:34 Random Glucose 118 mg/dL (75-110) H 12/23/17 06:45 Calcium 8.7 mg/dL (8.4-10.2) 12/23/17 06:45 Total Bilirubin 0.8 mg/dl (0.2-1.3) 12/22/17 06:00 AST 31 U/L (17-59) 12/22/17 06:00 ALT 45 U/L (21-72) 12/22/17 06:00 Alkaline Phosphatase 71 U/L (38-126) 12/22/17 06:00 Total Protein 7.0 G/DL (6.3-8.2) 12/22/17 06:00 Albumin 3.9 g/dL (3.5-5.0) 12/22/17 06:00 Globulin 3.1 gm/dL (2.2-3.9) 12/22/17 06:00 Albumin/Globulin Ratio 1.3 (1.0-2.1) 12/22/17 06:00 Lipase 77 U/L (23-300) 12/21/17 15:13 Urine Color Yellow (YELLOW) 12/21/17 16:00 Urine Clarity Clear (Clear) 12/21/17 16:00 Urine pH 6.0 (5.0-8.0) 12/21/17 16:00 Ur Specific [place] 1.025 (1.003-1.030) 12/21/17 16:00 Urine Protein Negative mg/dL (NEGATIVE) 12/21/17 16:00 Urine Glucose (UA) Neg mg/dL (Normal) 12/21/17 16:00 Urine Ketones Negative mg/dL (NEGATIVE) 12/21/17 16:00 Urine Blood Negative (NEGATIVE) 12/21/17 16:00 Urine Nitrate Negative (NEGATIVE) 12/21/17 16:00 Urine Bilirubin Negative (NEGATIVE) 12/21/17 16:00 Urine Urobilinogen 0.2-1.0 mg/dL (0.2-1.0) 12/21/17 16:00 Ur Leukocyte Esterase Neg [place]/uL (Negative) 12/21/17 16:00 Urine RBC (Auto) 2 /hpf (0-3) 12/21/17 16:00 Urine Microscopic WBC < 1 /hpf (0-5) 12/21/17 16:00 Ur Squamous Epith Cells < 1 /hpf (0-5) 12/21/17 16:00 Urine Bacteria Rare (<OCC) 12/21/17 16:00 - Hospital Course Hospital Course: 46 yo, m, PMhx/o HTN, SBO 2 years ago that resolved w/o surgery admitted for SBO. -Ct Abd showed mechanical bowel obstruction. Patient evaluated by Surgery, XR Abd showed progression of contrast to colon. Patient while on NPO his abd pain subsided, was able to tolerate regular diet, hemodynamically stable, labs unremarkable. Patient seen by Dr agosto bedside. Patient cleared by Dr agosto and surgery. Lactulose given to improve BM. Patient discharged. Will have follow up with Dr agosto and surgery Diagnosis 1)SBO -resolved by conservative treatment 2)HTN -chronic Discharge Exam - Head Exam Head Exam: NORMOCEPHALIC - Eye Exam Eye Exam: Normal appearance - ENT Exam ENT Exam: Mucous Membranes Moist - Respiratory Exam Respiratory Exam: Clear to PA & Lateral. absent: Rales, Rhonchi, Wheezes - Cardiovascular Exam Cardiovascular Exam: REGULAR RHYTHM, +S1, +S2 - GI/Abdominal Exam GI & Abdominal Exam: Normal Bowel Sounds, Soft. absent: Tenderness - Extremities Exam Extremities exam: normal inspection - Neurological Exam Neurological exam: Alert, Oriented x3 - Psychiatric Exam Psychiatric exam: Normal Affect, Normal Mood - Skin Skin Exam: Intact Discharge Plan - Follow Up Plan Condition: FAIR Disposition: HOME/ ROUTINE Instructions: Small Bowel Obstruction (DC) Additional Instructions: follow up with primary md 7-10 days Referrals: Chris Arevalo MD [Staff Provider] - Huan Agosto MD [Staff Provider] -
--- NOTE | 2017-12-24 12:10 | CARD ---
APPROVED REPORT EKG Measurement Heart [id number] <Conclusion> Normal sinus rhythm RSR' or QR pattern in V1 suggests right ventricular conduction delay Borderline ECG
== END 2017-12-23 13:54 | disposition home or self-care (01) ==
LOC: H.ER 14:20 → H.ERHOLD 18:08 → INTOOBSV 18:08 → H.MEDSURG1 20:52
PROVIDERS: ADMIT Family Medicine; ATTEND Family Medicine
DX: K56.609 Unspecified intestinal obstruction, unspecified as to partial versus complete obstruction (principal); K21.9 Gastro-esophageal reflux disease without esophagitis; I10 Essential (primary) hypertension; E78.00 Pure hypercholesterolemia, unspecified; E11.9 Type 2 diabetes mellitus without complications; K29.70 Gastritis, unspecified, without bleeding
CPT/HCPCS: 36415; 74019; 74177; 80048; 80053; 81003; 82948; 83690; 85025; 85610; 85730; 99284; C9113; G0378; J2270; J7120; Q9966; Q9967

== ENCOUNTER 2018-11-05 11:25 | Emergency (ER) | payer BC ==
[2018-11-05 11:32] VITALS: BMI 35.9
[2018-11-05 11:33] VITALS: RESP 18
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
--- NOTE | 2018-11-05 14:45 | RAD ---
Date of service: 11/05/2018 PROCEDURE: Left Knee Radiographs. HISTORY: Pain. COMPARISON: None. FINDINGS: BONES: Normal. No fracture. JOINTS: Joint spaces relatively preserved however small marginal osteophyte seen arising from the medial and lateral tibial plateau and distal lateral femoral condyle. Questionable could minimal chondrocalcinosis medial compartment. JOINT EFFUSION: No significant joint effusion. OTHER FINDINGS: None. IMPRESSION: No evidence of acute displaced fracture nor dislocation. Mild degenerative osteoarthritis with questionable chondrocalcinosis as above
[2018-11-05 15:56] VITALS: BP 124/76; PULSE 85; TEMP 98.7
[2018-11-05 19:15] VITALS: O2SAT 99
== END 2018-11-05 15:44 | disposition home or self-care (01) ==
LOC: H.ER 11:25
DX: M23.92 Unspecified internal derangement of left knee (principal); M25.562 Pain in left knee; E11.9 Type 2 diabetes mellitus without complications; I10 Essential (primary) hypertension; Z79.82 Long term (current) use of aspirin; Z79.84 Long term (current) use of oral hypoglycemic drugs
CPT/HCPCS: 73562; 96372; 99283; J1885